=== PATIENT | male | born 2000 | race Caucasian/White ===

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

== ENCOUNTER 2019-07-24 22:58 | Emergency (ER) | payer MEDICAID, OTHER ==
[2019-07-24] MEDS ORDERED: METOCLOPRAMIDE HCL INJ/PF 10 MG/2 ML SDV IM ONE (23:10)
[2019-07-24 23:17] VITALS: BP 137/73
--- NOTE | 2019-07-24 23:19 | ER Document Report ---
ED Medical Screen (RME) - General Chief Complaint: Closed Head Injury Stated Complaint: POSS CONCUSSION Time Seen by Provider: 07/24/19 23:10 Notes: 19-year-old male presents for head injury to the right side of his head around 1 PM. Patient states he accidentally struck himself. Denies LOC. Patient states he has dizziness and nausea upon moving his head. Patient denies being on any blood thinners as he is 19 years old. Patient states he took Excedrin Migraine with little relief. Discussed CT risk versus benefits and patient decided not to have CT done. Patient neuro grossly intact. I have greeted and performed a rapid initial assessment of this patient. A comprehensive ED assessment and evaluation of the patient, analysis of test results and completion of the medical decision making process with be conducted by additional ED providers. TRAVEL OUTSIDE OF THE [place] IN LAST 30 DAYS: No - Related Data Allergies/Adverse Reactions: No Known Allergies Allergy (Verified 01/20/17 09:03) Past Medical History - Social History Chew tobacco use (# tins/day): No Frequency of alcohol use: None Drug Abuse: None - Past Medical History Cardiac Medical History: Denies: Hx Heart Attack, Hx Hypertension Pulmonary Medical History: Denies: Hx Asthma Neurological Medical History: Denies: Hx Cerebrovascular Accident, Hx Seizures GI Medical History: Denies: Hx Hepatitis, Hx Hiatal Hernia, Hx Ulcer Infectious Medical History: Denies: Hx Hepatitis Past Surgical History: Denies: Hx Open Heart Surgery, Hx Pacemaker - Immunizations Immunizations up to date: Yes Hx Diphtheria, Pertussis, Tetanus Vaccination: Yes Physical Exam - Vital signs Vitals: Temp Pulse Resp BP Pulse Ox 97.7 F 70 18 137/73 H 98 07/24/19 23:06 07/24/19 23:06 07/24/19 23:06 07/24/19 23:06 07/24/19 23:06 Course - Vital Signs Vital signs: Temp Pulse Resp BP Pulse Ox 97.7 F 70 18 137/73 H 98 07/24/19 23:06 07/24/19 23:06 07/24/19 23:06 07/24/19 23:06 07/24/19 23:06
== END 2019-07-25 05:45 | disposition left against medical advice (07) ==
LOC: ER 22:58
DX: S09.90XA Unspecified injury of head, initial encounter (principal); X58.XXXA Exposure to other specified factors, initial encounter; Y93.89 Activity, other specified; R42 Dizziness and giddiness; R11.0 Nausea; Z53.20 Procedure and treatment not carried out because of patient's decision for unspecified reasons
CPT/HCPCS: J2765